=== PATIENT | female | born 1945 | race Caucasian/White ===

== ENCOUNTER 2016-10-26 10:39 | Emergency (ER) | payer BC, MEDICARE ==
--- NOTE | 2016-10-26 11:50 | EDM.PDOC ---
ED HPI GENERAL MEDICAL PROBLEM - General Chief Complaint: Lower Extremity Injury/Pain Stated Complaint: PAIN RT SIDE LEG Time Seen by Provider: 10/26/16 11:03 Source of Information: Reports: Patient, Family History Limitations: Reports: No Limitations - History of Present Illness INITIAL COMMENTS - FREE TEXT/NARRATIVE: HISTORY AND PHYSICAL: []71-year-old female presents with weakness to her right leg the calf and posterior thigh/hamstring History of Present Illness: []2 weeks ago patient fell onto her buttocks one week ago was seen by Dr. Morataya. X-rays at that time were all negative for any fractures. She was told she had bruising on her pelvis coccyx area Review of Systems: As per history of present illness and below otherwise all systems reviewed and negative. Past medical history: As per history of present illness and as reviewed below otherwise noncontributory. Surgical history: As per history of present illness and as reviewed below otherwise noncontributory. Social history: No reported history of drug or alcohol abuse. Family history: As per history of present illness and as reviewed below otherwise noncontributory. Physical exam: Very pleasant woman alert and oriented is concerned over weakness to the lower legs and difficulty standing for the last 3 days. HEENT: Atraumatic, normocehpalic, pupils reactive, negative for conjunctival pallor or scleral icterus, mucous membranes moist, throat clear, neck supple, nontender, trachea midline. Lungs: Clear to auscultation, breath sounds equal bilaterally, chest non tender. Heart: S1S2, regular, negative for clicks, rubs, or JVD. Abdomen: Soft, nondistended, nontender. Negative for masses or hepatossplenmegaly. Negative for costovertebral tenderness. Back: Tenderness is noted to the right sciatic area of buttocks radiating laterally. Pelvis: Stable nontender. Genitourinary: Deferred. Rectal: Deferred Extremities: Atraumatic, negative for cords or calf pain. Neurovascular unremarkable. Neuro: Awake, alert, oriented. Cranial nerves II through XII unremarkable. Cerebellum unremarkable. Motor and sensory unremarkable throughout. Exam nonfocal. Diagnostics: [] Therapeutics: [] Impression: [Right sciatic pain] Plan: Continue with your current medication baclofen. Follow-up with Dr. Morataya as scheduled this coming October 31] Definitive disposition and diagnosis as appropriate pending reevaluation and review of above. Onset: Sudden Duration: Week(s): (2) Location: Reports: Lower Extremity, Left, Lower Extremity, Right Quality: Reports: Ache, Other (Weakness) Severity: Moderate Improves with: Reports: None Worsens with: Reports: Other (Standing) Associated Symptoms: Reports: No Other Symptoms buttock Pain Score (Numeric/FACES): 5 - Related Data Allergies Allergy/AdvReac Type Severity Reaction Status Date / Time No Known Allergies Allergy Verified 10/26/16 10:59 Home Meds: Home Meds Baclofen 10 mg PO QID 10/02/14 [History] Ca/D3/Mag#11/Zinc/Dehydrogenation Converter Helper/Jone/Bor [Caltrate 600+D Plus Tablet] 1 each PO DAILY [History] Multivits-Min/Iron/FA/Lutein [Centrum Silver Women Tablet] 1 each PO DAILY 10/02 [History] Ramipril [Altace] 5 mg PO DAILY 10/02/14 [History] Metoprolol Succinate [Toprol XL] 50 mg PO DAILY 01/11/15 [History] Mirabegron [Myrbetriq] 50 mg PO DAILY 01/11/15 [History] Polyethylene Glycol 3350 [Miralax] 1 dose PO ASDIRECTED PRN 01/11/15 [History] Fesoterodine Fumarate [Toviaz] 8 mg PO DAILY 10/26/16 [History] Past Medical History HEENT History: Reports: Impaired Vision Other HEENT History: wears glasses Cardiovascular History: Reports: Hypertension Genitourinary History: Reports: Other (See Below) Other Genitourinary History: over active bladder Musculoskeletal History: Reports: Osteoporosis Other Musculoskeletal History: spastic paraparesis, 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 ED EXAM, GENERAL - Physical Exam Exam: See Below (see dictation) Course - Vital Signs Last Recorded V/S: Last Vital Signs Temp 36.3 C 10/26/16 11:02 Pulse 84 10/26/16 11:02 Resp 18 10/26/16 11:02 BP 191/107 H 10/26/16 11:02 Pulse Ox 97 10/26/16 11:02 Departure - Departure Time of Disposition: 11:49 Disposition: Home, Self-Care 01 Condition: Good Clinical Impression: Sciatica of right side without back pain - Discharge Information Forms: ED Department Discharge Additional Instructions: The following information is given to patients seen in the emergency department who are being discharged to home. This information is to outline your options for follow-up care. We provide all patients seen in our emergency department with a follow-up referral. The need for follow-up, as well as the timing and circumstances, are variable depending upon the specifics of your emergency department visit. If you don't have a primary care physician on staff, we will provide you with a referral. We always advise you to contact your personal physician following an emergency department visit to inform them of the circumstance of the visit and for follow-up with them and/or the need for any referrals to a consulting specialist. The emergency department will also refer you to a specialist when appropriate. This referral assures that you have the opportunity for followup care with a specialist. All of these measure are taken in an effort to provide you with optimal care, which includes your followup. Under all circumstances we always encourage you to contact your private physician who remains a resource for coordinating your care. When calling for followup care, please make the office aware that this follow-up is from your recent emergency room visit. If for any reason you are refused follow-up, please contact the [facility] emergency department at and asked to speak to the emergency department charge nurse. Follow-up with Dr. Morataya
[2016-10-26 12:01] VITALS: BP 137/94
== END 2016-10-26 11:59 | disposition home or self-care (01) ==
LOC: MW.ED 10:39
DX: M54.31 Sciatica, right side (principal); I10 Essential (primary) hypertension; Z79.899 Other long term (current) drug therapy
CPT/HCPCS: 99282; 99283

== ENCOUNTER 2018-11-12 02:26 | Emergency (ER) | payer BC, MEDICARE ==
[2018-11-12 03:28] LABS: CHLORIDE,CL 106 mmol/L (98-107); SODIUM,NA 140 mmol/L (136-145)
--- NOTE | 2018-11-12 03:57 | CR ---
INDICATION: Dizziness TECHNIQUE: Chest 1 view COMPARISON: None FINDINGS: Cardiovascular and mediastinum: Heart size and vasculature are normal in caliber and appearance. Lungs and pleural spaces: Lungs are clear. No sign of infiltrate or mass. No sign of pleural effusion. No pneumothorax. Bones and soft tissues: No significant findings. IMPRESSION: No acute or significant findings. Dictated by Hugo Jackson MD @ Nov 12 2018 3:55AM Signed by Dr. Hugo Jackson @ Nov 12 2018 3:55AM
--- NOTE | 2018-11-12 04:01 | CT ---
INDICATION: Dizziness TECHNIQUE: CT head without contrast. COMPARISON: None. FINDINGS: CSF spaces: Within normal limits for age. Brain parenchyma: Desir-white differentiation is distinct. There is a moderate amount of low-density in the deep white matter without mass effect. No intracranial bleed. Skull base and calvarium: The visualized paranasal sinuses and mastoid air cells demonstrate no acute or significant findings. The visualized orbits are grossly unremarkable. No skull fractures. Atherosclerosis. IMPRESSION: 1. No intracranial bleed or mass effect. 2. Moderate nonspecific white matter disease, likely microangiopathy. Please note that all CT scans at this facility use dose modulation, iterative reconstruction, and/or weight-based dosing when appropriate to reduce radiation dose to as low as reasonably achievable. Dictated by Hugo Jackson MD @ Nov 12 2018 3:55AM Signed by Dr. Hugo Jackson @ Nov 12 2018 3:59AM
[2018-11-12] MEDS ORDERED: cefTRIAXone 1 GM in Sodium Chloride 0.9% 50 ML IV ONE ×2 (04:20→04:22)
[2018-11-12] MEDS ORDERED: cefTRIAXone 1 GM in Premix Bag 1 BAG IV ONE (04:25)
--- NOTE | 2018-11-12 04:25 | EDM.PDOC ---
ED HPI GENERAL MEDICAL PROBLEM - General Chief Complaint: General Stated Complaint: NUMB, TINGLING, HIGH BLOOD PRESSURE Time Seen by Provider: 11/12/18 04:27 - History of Present Illness INITIAL COMMENTS - FREE TEXT/NARRATIVE: HISTORY AND PHYSICAL: History of present illness: Patient 73-year-old female with history of spastic paraparesis and hypertension presents with a concern of dizziness this occurred tonight when awakening to urinate there is no associated chest pain shortness of breath palpitations or other concern patient is anxious and states she's been adjusting her baclofen recently. Review of systems: As per history of present illness and below otherwise all systems reviewed and negative. Past medical history: As per history of present illness and as reviewed below otherwise noncontributory. Surgical history: As per history of present illness and as reviewed below otherwise noncontributory. Social history: No reported history of drug or alcohol abuse. Family history: As per history of present illness and as reviewed below otherwise noncontributory. Physical exam: HEENT: Atraumatic, normocephalic, pupils reactive, negative for conjunctival pallor or scleral icterus, mucous membranes moist, throat clear, neck supple, nontender, trachea midline. Lungs: Clear to auscultation, breath sounds equal bilaterally, chest nontender. Heart: S1S2, regular, negative for clicks, rubs, or JVD. Abdomen: Soft, nondistended, nontender. Negative for masses or hepatosplenomegaly. Negative for costovertebral tenderness. Pelvis: Stable nontender. Genitourinary: Deferred. Rectal: Deferred. Extremities: Atraumatic, negative for cords or calf pain. Neurovascular unremarkable. Neuro: Awake, alert, oriented. Cranial nerves II through XII unremarkable. Cerebellum unremarkable. Motor and sensory unremarkable throughout. Exam nonfocal. Diagnostics: CBC CMP UA CT brain chest x-ray EKG Therapeutics: Rocephin 1 g IV Impression: #1 medical screening exam over # 2 UTI #3 history of spastic paraparesis #4 history of hypertension Definitive disposition and diagnosis as appropriate pending reevaluation and review of above. - Related Data Allergies Allergy/AdvReac Type Severity Reaction Status Date / Time No Known Allergies Allergy Verified 10/11/17 04:52 Home Meds: Home Meds Baclofen 10 mg PO QID 10/02/14 [History] Ramipril [Altace] 5 mg PO DAILY 10/02/14 [History] Metoprolol Succinate [Toprol XL] 25 mg PO DAILY 01/11/15 [History] Fesoterodine Fumarate [Toviaz] 8 mg PO DAILY 10/26/16 [History] amLODIPine Besylate [Amlodipine Besylate] 1 tab PO DAILY 10/11/17 [History] Escitalopram [Lexapro] 5 mg PO DAILY 11/12/18 [History] Past Medical History HEENT History: Reports: Impaired Vision Other HEENT History: wears glasses Cardiovascular History: Reports: Hypertension Respiratory History: Reports: None Genitourinary History: Reports: Other (See Below) Other Genitourinary History: over active bladder;spastic bladder Musculoskeletal History: Reports: Osteoporosis Other Musculoskeletal History: Idiopathic Progressive paraperesis, 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 Psychiatric History: Reports: Anxiety Endocrine/Metabolic History: Reports: Osteopenia Oncologic (Cancer) History: Reports: Breast - Past Surgical History Female Surgical History: Reports: Hysterectomy, Other (See Below) Other Female Surgeries/Procedures: Mastectomy right Social & Family History - Family History Family Medical History: Noncontributory - Tobacco Use Smoking Status *Q: Never Smoker - Caffeine Use Caffeine Use: Reports: Coffee, Soda, Other Other Caffeine Use: decaf - Recreational Drug Use Recreational Drug Use: No ED ROS GENERAL - Review of Systems Review Of Systems: ROS reveals no pertinent complaints other than HPI. ED EXAM, GENERAL - Physical Exam Exam: See Below (See dictation) Course - Vital Signs Last Recorded V/S: Last Vital Signs Temp 36.6 C 11/12/18 02:26 Pulse 73 11/12/18 03:32 Resp 13 11/12/18 03:32 BP 149/87 H 11/12/18 03:32 Pulse Ox 97 11/12/18 03:32 - Orders/Labs/Meds Orders: Active Orders 24 hr Category Date Time Status EKG 12 Lead [EKG Documentation Completion] [RC] STAT Care 11/12/18 03:04 Active CULTURE URINE [RM] Stat Lab 11/12/18 02:46 Received cefTRIAXone [Rocephin] 1 gm Med 11/12/18 04:22 Ordered Sodium Chloride 0.9% [Normal Saline] 50 ml IV ONETIME Medication Orders Ceftriaxone Sodium 1 gm/ (Sodium Chloride) 50 mls @ 200 mls/hr IV ONETIME ONE Stop: 11/12/18 04:36 Labs: Laboratory Tests 11/12/18 11/12/18 11/12/18 Range/Units 02:46 02:53 02:53 WBC 8.23 (4.0-11.0) K/uL RBC 4.52 (4.30-5.90) M/uL Hgb 14.5 (12.0-16.0) g/dL Hct 44.6 (36.0-46.0) % MCV 98.7 H (80.0-98.0) fL MCH 32.1 H (27.0-32.0) pg MCHC 32.5 (31.0-37.0) g/dL RDW Std Deviation 48.0 (28.0-62.0) fl RDW Coeff of John 13 (11.0-15.0) % Plt Count 200 (150-400) K/uL MPV 9.80 (7.40-12.00) fL Neut % (Auto) 41.6 L (48.0-80.0) % Lymph % (Auto) 49.3 H (16.0-40.0) % [place] % (Auto) 6.9 (0.0-15.0) % Eos % (Auto) 1.8 (0.0-7.0) % Baso % (Auto) 0.4 (0.0-1.5) % Neut # (Auto) 3.4 (1.4-5.7) K/uL Lymph # (Auto) 4.1 H (0.6-2.4) K/uL [place] # (Auto) 0.6 (0.0-0.8) K/uL Eos # (Auto) 0.2 (0.0-0.7) K/uL Baso # (Auto) 0.0 (0.0-0.1) K/uL Nucleated RBC % 0.0 /100WBC Nucleated RBCs # 0 K/uL INR Sodium 140 (136-145) mmol/L Potassium 4.1 (3.5-5.1) mmol/L Chloride 106 (98-107) mmol/L Carbon Dioxide 26.2 (21.0-32.0) mmol/L BUN 20 H (7.0-18.0) mg/dL Creatinine 0.8 (0.6-1.0) mg/dL Est Cr Clr Drug Dosing 51.81 mL/min Estimated GFR (MDRD) > 60.0 ml/min Glucose 103 (74-106) mg/dL Calcium 9.8 (8.5-10.1) mg/dL Total Bilirubin 0.3 (0.2-1.0) mg/dL AST 34 (15-37) IU/L ALT 34 (14-63) IU/L Alkaline Phosphatase 132 H (46-116) U/L Troponin I < 0.050 (0.000-0.056) ng/mL Total Protein 7.4 (6.4-8.2) g/dL Albumin 4.1 (3.4-5.0) g/dL Globulin 3.3 (2.6-4.0) g/dL Albumin/Globulin Ratio 1.2 (0.9-1.6) Urine Color YELLOW Urine Appearance CLEAR Urine pH 7.0 (5.0-8.0) Ur Specific [place] 1.010 (1.001-1.035) Urine Protein NEGATIVE (NEGATIVE) mg/dL Urine Glucose (UA) NEGATIVE (NEGATIVE) mg/dL Urine Ketones NEGATIVE (NEGATIVE) mg/dL Urine Occult Blood TRACE-LYSED H (NEGATIVE) Urine Nitrite POSITIVE H (NEGATIVE) Urine Bilirubin NEGATIVE (NEGATIVE) Urine Urobilinogen 0.2 (<2.0) EU/dL Ur Leukocyte Esterase MODERATE H (NEGATIVE) Urine RBC NONE SEEN (0-2/HPF) Urine WBC 10-14 (0-5/HPF) Ur Epithelial Cells RARE (NONE-FEW) Urine Bacteria 2+ H (NEGATIVE) Urine Mucus LIGHT (NONE-MOD) 11/12/18 Range/Units 02:53 WBC (4.0-11.0) K/uL RBC (4.30-5.90) M/uL Hgb (12.0-16.0) g/dL Hct (36.0-46.0) % MCV (80.0-98.0) fL MCH (27.0-32.0) pg MCHC (31.0-37.0) g/dL RDW Std Deviation (28.0-62.0) fl RDW Coeff of John (11.0-15.0) % Plt Count (150-400) K/uL MPV (7.40-12.00) fL Neut % (Auto) (48.0-80.0) % Lymph % (Auto) (16.0-40.0) % [place] % (Auto) (0.0-15.0) % Eos % (Auto) (0.0-7.0) % Baso % (Auto) (0.0-1.5) % Neut # (Auto) (1.4-5.7) K/uL Lymph # (Auto) (0.6-2.4) K/uL [place] # (Auto) (0.0-0.8) K/uL Eos # (Auto) (0.0-0.7) K/uL Baso # (Auto) (0.0-0.1) K/uL Nucleated RBC % /100WBC Nucleated RBCs # K/uL INR 0.95 Sodium (136-145) mmol/L Potassium (3.5-5.1) mmol/L Chloride (98-107) mmol/L Carbon Dioxide (21.0-32.0) mmol/L BUN (7.0-18.0) mg/dL Creatinine (0.6-1.0) mg/dL Est Cr Clr Drug Dosing mL/min Estimated GFR (MDRD) ml/min Glucose (74-106) mg/dL Calcium (8.5-10.1) mg/dL Total Bilirubin (0.2-1.0) mg/dL AST (15-37) IU/L ALT (14-63) IU/L Alkaline Phosphatase (46-116) U/L Troponin I (0.000-0.056) ng/mL Total Protein (6.4-8.2) g/dL Albumin (3.4-5.0) g/dL Globulin (2.6-4.0) g/dL Albumin/Globulin Ratio (0.9-1.6) Urine Color Urine Appearance Urine pH (5.0-8.0) Ur Specific [place] (1.001-1.035) Urine Protein (NEGATIVE) mg/dL Urine Glucose (UA) (NEGATIVE) mg/dL Urine Ketones (NEGATIVE) mg/dL Urine Occult Blood (NEGATIVE) Urine Nitrite (NEGATIVE) Urine Bilirubin (NEGATIVE) Urine Urobilinogen (<2.0) EU/dL Ur Leukocyte Esterase (NEGATIVE) Urine RBC (0-2/HPF) Urine WBC (0-5/HPF) Ur Epithelial Cells (NONE-FEW) Urine Bacteria (NEGATIVE) Urine Mucus (NONE-MOD) Meds: Medications Generic Name Dose Route Start Last Admin Trade Name Joby PRN Reason Stop Dose Admin Ceftriaxone Sodium 1 gm/ 50 mls @ 200 mls/hr 11/12/18 04:22 Sodium Chloride IV 11/12/18 04:36 ONETIME ONE Departure - Departure Time of Disposition: 04:25 Disposition: Home, Self-Care 01 Condition: Good Clinical Impression: Dizziness, UTI (urinary tract infection), History of hypertension, Encounter for medical screening examination - Discharge Information Referrals: Abhay John MD [Primary Care Provider] - Forms: ED Department Discharge Additional Instructions: The following information is given to patients seen in the emergency department who are being discharged to home. This information is to outline your options for follow-up care. We provide all patients seen in our emergency department with a follow-up referral. The need for follow-up, as well as the timing and circumstances, are variable depending upon the specifics of your emergency department visit. If you don't have a primary care physician on staff, we will provide you with a referral. We always advise you to contact your personal physician following an emergency department visit to inform them of the circumstance of the visit and for follow-up with them and/or the need for any referrals to a consulting specialist. The emergency department will also refer you to a specialist when appropriate. This referral assures that you have the opportunity for followup care with a specialist. All of these measure are taken in an effort to provide you with optimal care, which includes your followup. Under all circumstances we always encourage you to contact your private physician who remains a resource for coordinating your care. When calling for followup care, please make the office aware that this follow-up is from your recent emergency room visit. If for any reason you are refused follow-up, please contact the [facility] emergency department at and asked to speak to the emergency department charge nurse. Continue current medications Keflex as prescribed O primary medical doctor and return as needed as discussed - My Orders Last 24 Hours: My Active Orders 11/12/18 02:46 CULTURE URINE [RM] Stat 11/12/18 03:04 EKG 12 Lead [EKG Documentation Completion] [RC] STAT 11/12/18 04:22 cefTRIAXone [Rocephin] 1 gm Sodium Chloride 0.9% [Normal Saline] 50 ml IV ONETIME - Assessment/Plan Last 24 Hours: My Active Orders 11/12/18 02:46 CULTURE URINE [RM] Stat 11/12/18 03:04 EKG 12 Lead [EKG Documentation Completion] [RC] STAT 11/12/18 04:22 cefTRIAXone [Rocephin] 1 gm Sodium Chloride 0.9% [Normal Saline] 50 ml IV ONETIME
[2018-11-12 04:32] VITALS: BP 139/78
== END 2018-11-12 05:01 | disposition home or self-care (01) ==
LOC: MW.ED 02:26
DX: N39.0 Urinary tract infection, site not specified (principal); R42 Dizziness and giddiness; I10 Essential (primary) hypertension; G11.4 Hereditary spastic paraplegia; F41.9 Anxiety disorder, unspecified; Z79.899 Other long term (current) drug therapy
CPT/HCPCS: 36415; 70450; 71045; 80053; 81001; 84484; 85025; 85610; 87086; 93005; 96365; 99284; J0696; 87088; 87186

== ENCOUNTER 2018-12-08 20:53 | Emergency (ER) | payer BC, MEDICARE ==
[2018-12-08 21:04] VITALS: BP 157/81; PULSE 73
[2018-12-08] MEDS ORDERED: Diphtheria/Tetanus Toxoids,Adult (Td) 0.5 ML Syringe IM ONE (21:12)
--- NOTE | 2018-12-08 21:13 | EDM.PDOC ---
ED HPI GENERAL MEDICAL PROBLEM - General Chief Complaint: Laceration Stated Complaint: RIGHT FINGER LACERATION Time Seen by Provider: 12/08/18 21:03 - History of Present Illness INITIAL COMMENTS - FREE TEXT/NARRATIVE: HISTORY AND PHYSICAL: History of present illness: The patient is a 73-year-old female with a history of hypertension who presents with a laceration to the distal soft tissue of her right index finger that occurred approximately 2 hours ago. She said she was caring a knife and mistakenly cut herself. She only came in because she felt it would not stop bleeding despite pressure. She has no other injuries and she is right-hand dominant. She is able to flex and extend without deficit and has minimal pain in the area. Prior to these events she was in her usual state of good health without any systemic complaints. Patient is unsure of her last tetanus shot Review of systems: As per history of present illness and below otherwise all systems reviewed and negative. Past medical history: As per history of present illness and as reviewed below otherwise noncontributory. Surgical history: As per history of present illness and as reviewed below otherwise noncontributory. Social history: No reported history of drug or alcohol abuse. Family history: As per history of present illness and as reviewed below otherwise noncontributory. Physical exam: General: Well-developed well-nourished female who is nontoxic and vital signs are reviewed by me HEENT: Atraumatic, normocephalic, negative for conjunctival pallor or scleral icterus, mucous membranes moist, throat clear, neck supple, nontender, trachea midline. Lungs: Clear to auscultation, breath sounds equal bilaterally, chest nontender. Heart: S1S2, regular rate and rhythm no overt murmurs Abdomen: Soft, nondistended, nontender. NABS Pelvis: Deferred Genitourinary: Deferred. Rectal: Deferred. Extremities: Atraumatic full range of motion without defects or deficits with the exception of the soft tissue of the distal aspect of the right index finger where there is a 1.5 cm superficial laceration seen with some oozing. There is no soft tissue injury or erythema and the patient could flex and extend without deficit. Neurovascular unremarkable. Neuro: Awake, alert, oriented. Cranial nerves II through XII unremarkable. Cerebellum unremarkable. Motor and sensory unremarkable throughout. Exam nonfocal. Diagnostics: none Therapeutics: Tenivac, wound care with cleansing and Surgicel placement with tube gauze by nursing The laceration looks very superficial to me and I do not think that it merits suture repair but I did offer that the patient declines and would rather have symptomatic wound care. Impression: Laceration of right index finger Definitive disposition and diagnosis as appropriate pending reevaluation and review of above. R index Pain Score (Numeric/FACES): 5 - Related Data Allergies Allergy/AdvReac Type Severity Reaction Status Date / Time No Known Allergies Allergy Verified 12/08/18 21:04 Home Meds: Home Meds Baclofen 10 mg PO QID 10/02/14 [History] Ramipril [Altace] 5 mg PO DAILY 10/02/14 [History] Metoprolol Succinate [Toprol XL] 25 mg PO DAILY 01/11/15 [History] Fesoterodine Fumarate [Toviaz] 8 mg PO DAILY 10/26/16 [History] amLODIPine Besylate [Amlodipine Besylate] 1 tab PO DAILY 10/11/17 [History] Escitalopram [Lexapro] 5 mg PO DAILY 11/12/18 [History] Past Medical History HEENT History: Reports: Impaired Vision Other HEENT History: wears glasses Cardiovascular History: Reports: Hypertension Respiratory History: Reports: None Gastrointestinal History: Reports: None Genitourinary History: Reports: Other (See Below) Other Genitourinary History: over active bladder;spastic bladder [employer] History: Reports: Musculoskeletal History: Reports: Osteoporosis Other Musculoskeletal History: Idiopathic Progressive paraperesis, 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 Psychiatric History: Reports: Anxiety Endocrine/Metabolic History: Reports: Osteopenia Oncologic (Cancer) History: Reports: Breast - Past Surgical History HEENT Surgical History: Reports: Adenoidectomy, Tonsillectomy Cardiovascular Surgical History: Reports: None GI Surgical History: Reports: Cholecystectomy Female Surgical History: Reports: Hysterectomy, Other (See Below) Other Female Surgeries/Procedures: Mastectomy right Neurological Surgical History: Reports: None Musculoskeletal Surgical History: Reports: None Social & Family History - Family History Family Medical History: Noncontributory - Tobacco Use Smoking Status *Q: Never Smoker Second Hand Smoke Exposure: No - Caffeine Use Caffeine Use: Reports: None Other Caffeine Use: decaf - Recreational Drug Use Recreational Drug Use: No ED ROS GENERAL - Review of Systems Review Of Systems: ROS reveals no pertinent complaints other than HPI. ED EXAM, SKIN/RASH Exam: See Below (see dictation) Course - Vital Signs Last Recorded V/S: Last Vital Signs Temp 36.4 C 12/08/18 21:02 Pulse 73 12/08/18 21:02 Resp 17 12/08/18 21:02 BP 157/81 H 12/08/18 21:02 Pulse Ox 96 12/08/18 21:02 - Orders/Labs/Meds Orders: Active Orders 24 hr Category Date Time Status Communication Order [RC] STAT Care 12/08/18 21:14 Ordered Vaccines to be Administered [RC] PER UNIT ROUTINE Care 12/08/18 21:12 Ordered Diphtheria/Tetanus Tox,Adult [Tenivac] Med 12/08/18 21:12 Once 0.5 ml IM .ONCE ONE Departure - Departure Time of Disposition: 21:18 Disposition: Home, Self-Care 01 Condition: Good Clinical Impression: Laceration of right index finger Qualifiers: Encounter type: initial encounter Damage to nail status: without damage Foreign body presence: without foreign body Qualified Code(s): S61.210A - Laceration without foreign body of right index finger without damage to nail, initial encounter - Discharge Information Referrals: Abhay John MD [Primary Care Provider] - Forms: ED Department Discharge Additional Instructions: The following information is given to patients seen in the emergency department who are being discharged to home. This information is to outline your options for follow-up care. We provide all patients seen in our emergency department with a follow-up referral. The need for follow-up, as well as the timing and circumstances, are variable depending upon the specifics of your emergency department visit. If you don't have a primary care physician on staff, we will provide you with a referral. We always advise you to contact your personal physician following an emergency department visit to inform them of the circumstance of the visit and for follow-up with them and/or the need for any referrals to a consulting specialist. The emergency department will also refer you to a specialist when appropriate. This referral assures that you have the opportunity for followup care with a specialist. All of these measure are taken in an effort to provide you with optimal care, which includes your followup. Under all circumstances we always encourage you to contact your private physician who remains a resource for coordinating your care. When calling for followup care, please make the office aware that this follow-up is from your recent emergency room visit. If for any reason you are refused follow-up, please contact the [facility] emergency department at and ask to speak to the emergency department charge nurse. [facility] Primary care- Internal Medicine and Family [address] [address] Leave the dressing placed on in the ED for the next 24 hours then remove the tube gauze and do not pull off the Surgicel if it is adherent to the wound. Cleansed the hand and the finger above the injury and let the area the cleansed with runoff water and pat dry. The Surgicel will fall off on its own do not pull it off. Do not use Band-Aids and only cover with gauze dressing if you need to. Return to ER as needed and as discussed and follow-up with your provider in the clinic as needed this week - My Orders Last 24 Hours: My Active Orders 12/08/18 21:12 Vaccines to be Administered [RC] PER UNIT ROUTINE Diphtheria/Tetanus Tox,Adult [Tenivac] 0.5 ml IM .ONCE ONE 12/08/18 21:14 Communication Order [RC] STAT - Assessment/Plan Last 24 Hours: My Active Orders 12/08/18 21:12 Vaccines to be Administered [RC] PER UNIT ROUTINE Diphtheria/Tetanus Tox,Adult [Tenivac] 0.5 ml IM .ONCE ONE 12/08/18 21:14 Communication Order [RC] STAT
== END 2018-12-08 21:30 | disposition home or self-care (01) ==
LOC: MW.ED 20:53
DX: S61.210A Laceration without foreign body of right index finger without damage to nail, initial encounter (principal); I10 Essential (primary) hypertension; F41.9 Anxiety disorder, unspecified; Z23 Encounter for immunization; Z79.899 Other long term (current) drug therapy; Z98.890 Other specified postprocedural states; Z90.49 Acquired absence of other specified parts of digestive tract; Z90.710 Acquired absence of both cervix and uterus; W26.0XXA Contact with knife, initial encounter
CPT/HCPCS: 90471; 90714; 99282

== ENCOUNTER 2021-08-21 19:41 | Emergency (ER) | payer BC ==
[2021-08-21] MEDS ORDERED: Ondansetron 4 MG Tab.DIS PO ONE (20:17)
[2021-08-21 21:16] LABS: BLOOD UREA NITROGEN,BUN 13 mg/dL (7.0-18.0); CARBON DIOXIDE,CO2 24.2 mmol/L (21.0-32.0); CHLORIDE,CL 99 mmol/L (98-107); GLUCOSE RANDOM 132 mg/dL (74-106); POTASSIUM,K 3.7 mmol/L (3.5-5.1); SODIUM,NA 134 mmol/L (136-145)
[2021-08-21 22:00] VITALS: BP 139/74; PULSE 84
== END 2021-08-21 22:01 | disposition home or self-care (01) ==
LOC: MW.ED 19:41
DX: R11.2 Nausea with vomiting, unspecified (principal); I10 Essential (primary) hypertension
CPT/HCPCS: 36415; 80053; 81001; 85025; 99284; A9270

== ENCOUNTER 2021-11-03 02:06 | Emergency (ER) | payer BC ==
[2021-11-03 02:34] VITALS: BP 148/97; PULSE 78
== END 2021-11-03 03:23 | disposition home or self-care (01) ==
LOC: MW.ED 02:06
DX: R20.2 Paresthesia of skin (principal); I10 Essential (primary) hypertension
CPT/HCPCS: 74019; 74019-26; 93880; 93880-26; 99283

== ENCOUNTER 2022-06-14 08:15 | Emergency (ER) | payer MEDICARE, BC ==
[2022-06-14 08:37] VITALS: BP 173/96; PULSE 85
[2022-06-14 09:50] LABS: CARBON DIOXIDE,CO2 27.1 mmol/L (21.0-32.0); POTASSIUM,K 4.1 mmol/L (3.5-5.1)
== END 2022-06-14 11:01 | disposition home or self-care (01) ==
LOC: MW.ED 08:15
DX: R20.2 Paresthesia of skin (principal); I10 Essential (primary) hypertension; Z79.899 Other long term (current) drug therapy
CPT/HCPCS: 36415; 70450; 70450-26; 80048; 85025; 99284

== ENCOUNTER 2024-03-29 10:09 | Emergency (ER) | payer MEDICARE, BC ==
[2024-03-29 11:35] LABS: BASOPHILS ABSOLUTE AUTO 0.03 K/uL (0.00-0.20); BASOPHILS PERCENT AUTO 0.4 % (0.0-1.0); EOSINOPHILS ABSOLUTE AUTO 0.07 K/uL (0.00-0.45); HEMATOCRIT 41.5 % (37.0-47.0); HEMOGLOBIN 13.8 g/dL (12.0-16.0); IMMATURE GRAN ABSOLUTE AUTO 0.02 K/uL (0.00-0.05); IMMATURE GRAN PERCENT AUTO 0.3 % (0.0-0.4); LYMPHOCYTES ABSOLUTE AUTO 1.33 K/uL (1.00-4.80); LYMPHOCYTES PERCENT AUTO 19.8 % (24.0-44.0); MEAN CORPUSCULAR HEMOGLOBIN 31.9 pg (28.0-32.0); MEAN CORPUSCULAR HGB CONC 33.3 g/dL (32.0-36.0); MEAN CORPUSCULAR VOLUME 95.8 fL (83.0-99.0); MEAN PLATELET VOLUME 9.3 fL (9.4-12.3); MONOCYTES ABSOLUTE AUTO 0.55 K/uL (0.00-0.80); MONOCYTES PERCENT AUTO 8.2 % (0.0-8.0); NEUTROPHILS ABSOLUTE AUTO 4.73 K/uL (1.80-7.70); NEUTROPHILS PERCENT AUTO 70.3 % (41.0-71.0); PLATELET COUNT,PLT 200 K/uL (150-400); RED BLOOD CELL COUNT 4.33 M/uL (4.10-5.30); WHITE BLOOD CELL COUNT,WBC 6.73 K/uL (3.9-11.3)
[2024-03-29 12:01] LABS: A/G RATIO 1.1 (0.9-1.6); ALBUMIN 3.9 g/dL (3.4-5.0); BILIRUBIN TOTAL 0.6 mg/dL (0.2-1.0); CALCIUM 9.6 mg/dL (8.5-10.1); CARBON DIOXIDE,CO2 29.6 mmol/L (21.0-32.0); CREATININE 0.8 mg/dL (0.6-1.0); EST CRCL DRUG DOSING (CG) 47.94 mL/min; POTASSIUM,K 3.8 mmol/L (3.5-5.1); PROTEIN TOTAL,TP 7.3 g/dL (6.4-8.2)
[2024-03-29] MEDS: Iopamidol 755 MG/ML 500 ML Multipack Bottle IVPUSH STA (14:20)
[2024-03-29 15:40] LABS: APPEARANCE,URINE CLEAR; BILIRUBIN,URINE NEGATIVE (NEGATIVE); GLUCOSE,URINE NEGATIVE (NEGATIVE); KETONES,URINE NEGATIVE (NEGATIVE); LEUKOCYTE ESTERASE,URINE NEGATIVE (NEGATIVE); NITRITE,URINE NEGATIVE (NEGATIVE); OCCULT BLOOD,URINE NEGATIVE (NEGATIVE); PH,URINE 7.5 (5.0-8.0); PROTEIN,URINE NEGATIVE (NEGATIVE); UROBILINOGEN,URINE 0.2 EU/dL (<2.0)
[2024-03-29 15:41] LABS: COLOR,URINE STRAW
[2024-03-29 15:59] VITALS: BP 134/79; PULSE 79
== END 2024-03-29 15:58 | disposition home or self-care (01) ==
LOC: MW.ED 10:09
DX: R00.2 Palpitations (principal); I10 Essential (primary) hypertension; Z75.8 Other problems related to medical facilities and other health care; Z79.899 Other long term (current) drug therapy; Z90.49 Acquired absence of other specified parts of digestive tract; Z90.710 Acquired absence of both cervix and uterus
CPT/HCPCS: 36415; 70450; 71045; 71275; 80053; 81003; 84484; 85025; 85379; 93005; 99285; Q9967